=== PATIENT | female | born 1975 ===

== ENCOUNTER 2017-07-21 17:57 | Emergency (ER) | payer MEDICARE, OTHER ==
[2017-07-21 17:57] VITALS: BMI 45.4
[2017-07-21] MEDS ORDERED: Sodium Chloride 0.9% 500 ML IV ONE (20:04)
--- NOTE | 2017-07-21 20:21 | C.PDOC ---
History Of Present Illness 42 year old female presents to ED c/o intermittent RUQ pain for the past 4 days. Patient reports she went to see her PMD Dr. Owen today who sent her here for evaluation of her gallbladder. Patient denies, nausea, vomit, diarrhea , chills, back pain, CP, SOB, dysuria, hematuria. Time Seen by Provider: 07/21/17 19:23 Chief Complaint (Nursing): Abdominal Pain History Per: Patient History/Exam Limitations: no limitations Onset/Duration Of Symptoms: Intermittent Episodes Current Symptoms Are (Timing): Still Present Location Of Pain/Discomfort: RUQ Radiation Of Pain To:: None Quality Of Discomfort: "Pain" Associated Symptoms: denies: Fever, Nausea, Vomiting, Diarrhea, Constipation Recent travel outside of the [place]: No Additional History Per: Patient Abnormal Vaginal Bleeding: No Past Medical History Reviewed: Historical Data, Nursing Documentation, Vital Signs Vital Signs: Last Vital Signs Temp 97.3 F L 07/21/17 18:04 Pulse 82 07/21/17 18:04 Resp 20 07/21/17 18:04 BP 130/77 07/21/17 18:04 Pulse Ox 98 07/22/17 01:03 - Medical History PMH: Anemia, Asthma, Atrial Fibrillation, Cardia Arrhythmia (afib), CHF, HTN, TIA (2014) Denies: Chronic Kidney Disease Surgical History: Appendectomy (30YRS AGO), Pacemaker Family History: States: Unknown Family Hx - Social History Hx Tobacco Use: No Hx Alcohol Use: No Hx Substance Use: No - Immunization History Hx Tetanus Toxoid Vaccination: No Hx Influenza Vaccination: No Hx Pneumococcal Vaccination: No Review Of Systems Constitutional: Negative for: Fever, Chills Cardiovascular: Negative for: Chest Pain Respiratory: Negative for: Cough, Shortness of Breath Gastrointestinal: Positive for: Abdominal Pain. Negative for: Nausea, Vomiting Genitourinary: Negative for: Dysuria, Hematuria, Vaginal Discharge, Vaginal Bleeding Skin: Negative for: Rash Neurological: Negative for: Weakness, Numbness Physical Exam - Physical Exam Appears: Non-toxic, No Acute Distress Skin: Normal Color, Warm, Dry Head: Atraumatic, Normacephalic Nose: No Discharge Oral Mucosa: Moist Neck: Normal ROM, Supple Chest: Symmetrical Cardiovascular: Rhythm Regular, No Murmur Respiratory: Normal Breath Sounds, No Rales, No Rhonchi, No Wheezing Gastrointestinal/Abdominal: Soft, Tenderness (RUQ), No Distention, No Rebound Back: No CVA Tenderness Extremity: Normal ROM, No Pedal Edema, No Calf Tenderness, No Swelling Neurological/Psych: Oriented x3, Normal Speech, Normal Cognition Gait: Steady ED Course And Treatment - Laboratory Results Result Diagrams: 07/21/17 20:19 07/21/17 20:19 O2 Sat by Pulse Oximetry: 98 (On RA) Pulse Ox Interpretation: Normal - CT Scan/US US abdomen Other Rad Studies (CT/US): Interpreted By Me, Read By Radiologist, Radiology Report Reviewed CT/US Interpretation: EXAM: US Abdomen Complete. CLINICAL HISTORY: 42 years old, female; Pain; Abdominal pain; Generalized; Patient HX: Prior 11-07-14; Additional info: Ruq pain. TECHNIQUE: Real-time ultrasound of the abdomen ( complete) with image documentation. COMPARISON: US - ABDOMEN LIMITED 10:15. FINDINGS: Limitations: Body habitus. Liver: Fatty infiltration. No mass. No intrahepatic ductal dilatation. Gallbladder: No gallstones. No wall thickening. No pericholecystic fluid. No sonographic Alaniz's. sign. Common bile duct: No dilatation. No stones. Pancreas: Unremarkable as visualized. Kidneys: Normal echogenicity. 2.8 cm LEFT renal cyst. No hydronephrosis. Spleen : No splenomegaly. Aorta: Unremarkable. No aneurysm. Inferior vena cava: Unremarkable. Free fluid: No significant free fluid. IMPRESSION: 1. No acute findings. 2. Non-acute findings are described above. Medical Decision Making Medical Decision Making: Plan: * Blood work * IV fluids * Toradol 30 mg IVP * UA * US abdomen 11:08PM U/s negative for acute pathology. Patient has had persistent R sided pain x 4 days. UA shows leukocytes, wbc and hematuria. Patient reports that she is not menstruating currently and her prior MD was concerned about renal stones but never ordered CT. Due to persistent pain and more specific study will get CT CT 1. No definite CT evidence of urolithiasis. 2. Probable LEFT ovarian cyst. Consider ultrasound. 3. Malpositioned IUD. 4. Incidental/non-acute findings are described above Disposition - Disposition Disposition: HOME/ ROUTINE Disposition Time: 00:59 Condition: GOOD Additional Instructions: Follow-up with PMD within 2 days. Return to ED if condition worsens. Take full course of antibiotics. Your CT and u/s show renal cysts and ovarian cysts. Your IUD is malpositioned. Follow-up [facility] with cotton converter Prescriptions: Sulfamethoxazole/Trimethoprim [Bactrim Ds Tablet] 1 each PO BID #28 tablet Instructions: Urinary Tract Infection in Women (ED) Forms: [facility] (Pashto) - Clinical Impression Clinical Impression: UTI (urinary tract infection), Flank pain, Pyelonephritis - Scribe Statement The provider has reviewed the documentation as recorded by the Scribe Fady Galarza All medical record entries made by the Ana Luisaibe were at my direction and personally dictated by me. I have reviewed the chart and agree that the record accurately reflects my personal performance of the history, physical exam, medical decision making, and the department course for this patient. I have also personally directed, reviewed, and agree with the discharge instructions and disposition.
[2017-07-21 20:25] LABS: BASO % 0.3 % (0.0-2.0); EOS # 0.1 K/uL (0.0-0.7); EOS % 0.7 % (0.0-4.0); HEMATOCRIT 37.1 % (34.0-47.0); LYMPH # 1.6 K/uL (1.0-4.3); LYMPH % 14.2 % (20.0-40.0); MEAN CELL VOLUME 81.2 fL (81.0-99.0); MEAN CORPUSCULAR HEMOGLOBIN 26.6 pg (27.0-31.0); MEAN CORPUSCULAR HGB CONC 32.8 g/dL (33.0-37.0); MEAN PLATELET VOLUME 8.9 fL (7.2-11.7); MONO # 0.7 K/uL (0.0-0.8); MONO % 5.8 % (0.0-10.0); NRBC % 0.1 % (0.0-2.0); RED CELL DISTRIBUTION WIDTH 14.3 % (11.5-14.5); WHITE BLOOD COUNT 11.6 K/uL (4.8-10.8)
[2017-07-21 20:41] LABS: RBC URINE 10 /hpf (0-3); URINE BACTERIA FEW (<OCC); URINE BILIRUBIN NEGATIVE (NEGATIVE); URINE BLOOD 2+ (NEGATIVE); URINE COLOR Yellow (YELLOW); URINE GLUCOSE (UA) NORMAL (Normal); URINE KETONE NEGATIVE (NEGATIVE); URINE PROTEIN NEGATIVE (NEGATIVE); URINE UROBILINOGEN NORMAL mg/dL (0.2-1.0); WBC URINE 31 /hpf (0-5)
[2017-07-21 20:43] LABS: ALB/GLOB RATIO 1.2 (1.0-2.1); ALKALINE PHOSPHATASE 75 U/L (38-126); ALT/SGPT 37 U/L (9-52); AST/SGOT 21 U/L (14-36); BILIRUBIN,TOTAL 0.4 mg/dL (0.2-1.3); BLOOD UREA NITROGEN 11 mg/dL (7-17); CALCIUM 8.5 mg/dl (8.6-10.4); CARBON DIOXIDE 26 mmol/L (22-30); CHLORIDE 104 mmol/L (98-107); GFR AFRICAN-AMERICAN > 60; GLUCOSE,RANDOM 81 mg/dL (65-105); POTASSIUM 3.6 mmol/L (3.6-5.2); SODIUM 138 mmol/L (132-148); TOTAL PROTEIN 6.9 g/dL (6.3-8.3)
[2017-07-21 20:53] LABS: URINE LEUKOCYTE ESTERASE 1+ Leu/uL (Negative)
--- NOTE | 2017-07-21 22:52 | US ---
EXAM: US Abdomen Complete CLINICAL HISTORY: 42 years old, female; Pain; Abdominal pain; Generalized; Patient HX: Prior 11-07-14; Additional info: Ruq pain TECHNIQUE: Real-time ultrasound of the abdomen (complete) with image documentation. COMPARISON: US - ABDOMEN LIMITED 2014-11-07 10:15 FINDINGS: Limitations: Body habitus. Liver: Fatty infiltration. No mass. No intrahepatic ductal dilatation. Gallbladder: No gallstones. No wall thickening. No pericholecystic fluid. No sonographic Alaniz's sign. Common bile duct: No dilatation. No stones. Pancreas: Unremarkable as visualized. Kidneys: Normal echogenicity. 2.8 cm LEFT renal cyst. No hydronephrosis. Spleen: No splenomegaly. Aorta: Unremarkable. No aneurysm. Inferior vena cava: Unremarkable. Free fluid: No significant free fluid. IMPRESSION: 1.No acute findings. 2.Non-acute findings are described above.
--- NOTE | 2017-07-22 01:00 | CT ---
EXAM: CT Abdomen and Pelvis Without Intravenous Contrast CLINICAL HISTORY: 42 years old, female; Pain; Abdominal pain; Patient HX: Us 07-21-17; Additional info: Hematuria, flank pain TECHNIQUE: Axial computed tomography images of the abdomen and pelvis without intravenous contrast. All CT scans at this facility use one or more dose reduction techniques, viz.: automated exposure control; ma/kV adjustment per patient size (including targeted exams where dose is matched to indication; i.e. head); or iterative reconstruction technique. Coronal and sagittal reformatted images were created and reviewed. COMPARISON: US - ABDOMEN COMPLETE 2017-07-21 21:54 FINDINGS: Lower thorax: Mild cardiomegaly. Pacemaker leads. Valve replacement. Small hiatal hernia. ABDOMEN: Liver: Unremarkable. Gallbladder and bile ducts: No calcified stones. No ductal dilation. Pancreas: Unremarkable. No ductal dilation. Spleen: No splenomegaly. Adrenals: No mass. Kidneys and ureters: Probable LEFT renal cyst. No renal calculi. No hydronephrosis. Stomach and bowel: Scattered diverticula within colon. No associated inflammatory stranding. No definite mural thickening. No obstruction. Appendix: No findings to suggest acute appendicitis. PELVIS: Bladder: Unremarkable. No stones. Reproductive: IUD, angulated within lower uterine segment/cervix. 2.6 x 2.5 x 2.4 cm hypodense lesion within LEFT ovary. ABDOMEN and PELVIS: Intraperitoneal space: No significant fluid collection. No free air. Bones/joints: Median sternotomy. Soft tissues: Unremarkable. Vasculature: Unremarkable. No aneurysm. Lymph nodes: No pathologically enlarged lymph nodes. IMPRESSION: 1. No definite CT evidence of urolithiasis. 2. Probable LEFT ovarian cyst. Consider ultrasound. 3. Malpositioned IUD. 4. Incidental/non-acute findings are described above.
[2017-07-22] MEDS ORDERED: Tmp-Smz 800 mg-160 mg DS Tab PO STA (01:03)
[2017-07-22] MEDS ORDERED: Tmp-Smz 800 mg-160 mg DS Tab ONE (01:08)
[2017-07-22 01:16] VITALS: BP 130/70; PULSE 70; RESP 14; TEMP 97.2; O2SAT 97
== END 2017-07-22 01:16 | disposition home or self-care (01) ==
LOC: C.ER 17:57
DX: N39.0 Urinary tract infection, site not specified (principal); N12 Tubulo-interstitial nephritis, not specified as acute or chronic; R10.11 Right upper quadrant pain
CPT/HCPCS: 74176; 76700; 80053; 81001; 83690; 85025; 96374; 99285; J1885; J7040